=== PATIENT | male | born 1975 | race Caucasian/White ===

== ENCOUNTER 2022-04-13 06:28 | Emergency (ER) | payer BC, SELFPAY ==
--- NOTE | ~2022-04-13 | CT_ITS ---
EXAMINATION: CT abdomen pelvis wo con DATE: 04/13/2022 08:22 INDICATION: Right flank pain. TECHNIQUE: Computed tomography (CT) of the abdomen and pelvis was performed without intravenous contr ast. Automated exposure control and iterative reconstruction technique were employed. The dose-length product was 1578.85 mGy-cm. COMPARISON: None. FINDINGS: The visualized portions of the lung bases demonstrate mild atelectasis. No pleural effusion . The heart size is normal. No pericardial effusion. The liver, gallbladder, spleen, pancreas, and ad renal glands are normal. There are 2 stones in right kidney with the larger measuring 4 mm. There is mild right hydronephrosis. There is a 5 mm stone in proximal right ureter. There is a 5 mm stone in d istal right ureter. There are 3 stones in left kidney measuring up to 5 mm. There are bilateral ingui nal hernias containing fat. There is diverticulosis of the colon without evidence of diverticulitis. There are no dilated loops of bowel. The appendix is normal. There are no pathologically enlarged lym ph nodes. There is no free intraperitoneal fluid. There is mild thoracolumbar spondylosis. IMPRESSION: 1. 5 mm stone in proximal right ureter and 5 mm stone in distal right ureter with mild right hydronep hrosis. 2. Bilateral nonobstructing kidney stones. Reviewed, dictated and finalized at location B. IMPRESSION: 1. 5 mm stone in proximal right ureter and 5 mm stone in distal right ureter wi th mild right hydronephrosis. 2. Bilateral nonobstructing kidney stones.
[2022-04-13 06:30] VITALS: BP 146/95; PULSE 88; RESP 20; TEMP 36.6; O2SAT 100
[2022-04-13 06:52] VITALS: BP 165/112; PULSE 82; RESP 18; O2SAT 100
[2022-04-13 07:14] LABS: Basophils Absolute Auto 0.1 K/mm3 (0.0-0.1); Basophils Percent Auto 0.6 % (0.2-1.2); Eosinophils Absolute Auto 0.1 K/mm3 (0-0.3); Hematocrit 48.7 % (42.0-52.0); Hemoglobin 16.2 g/dL (14.0-18.0); Immature Granulocyte Absolute 0.08 K/mm3 (0.00-0.031); Immature Granulocyte Percent A 0.6 % (0-0.5); Lymphocytes Absolute Auto 3.52 K/mm3 (0.9-3.2); Lymphocytes Percent Auto 27.3 % (18.3-44.2); Mean Corpuscular HGB Conc 33.3 g/dl (32-36); Mean Corpuscular Hemoglobin 29.6 pg (26-34); Mean Platelet Volume 11.3 fl (7.4-10.4); Monocytes Absolute Auto 1.1 K/mm3 (0.1-0.6); Monocytes Percent Auto 8.7 % (2.6-8.5); Neutrophils Percent Auto 61.8 % (45.5-73.1); Platelet Count Result 268 k/mm3 (150-375); Red Blood Count 5.47 M/mm3 (4.6-6.20); Red Cell Distribution Width 12.8 % (11.5-14.5); White Blood Count 12.9 K/mm3 (4.5-10.0)
[2022-04-13 07:18] LABS: Alanine Aminotransferase 42 U/L (6-50); Albumin Level 4.5 g/dL (3.5-5.1); Alkaline Phosphatase 103 U/L (38-126); Anion Gap 7 mmol/L (8-16); Aspartate Amino Transferase 32 U/L (17-59); Bilirubin,Total 0.6 mg/dL (0.2-1.3); Blood Urea Nitrogen 14 mg/dL (9-20); Calcium 9.2 mg/dL (8.4-10.2); Carbon Dioxide 28 mmol/L (22-30); Chloride 101 mmol/L (98-107); Estimated CRCL calculation 114 ml/min; Estimated Glomerular Filt Rate > 60; Glucose 143 mg/dL (65-110); Potassium 4.5 mmol/L (3.4-5.0); Sodium 136 mmol/L (137-145)
--- NOTE | 2022-04-13 08:06 | ED.GENADULT ---
HPI - General Adult General Chief complaint: Abdominal Pain Stated complaint: rt side pain Time Seen by Provider: 04/13/22 07:06 History of Present Illness HPI narrative: 46-year-old male with a history of hypertension, dyslipidemia, prior kidney stones and Simmons's palsy presents with a right-sided flank pain which is constant but worsens with waves and at this intensity. Pain is nonradiating and present since last night. He has not taken any meds. He tried to go to work but was unable to continue. Related Data Allergies Allergy/AdvReac Type Severity Reaction Status Date / Time No Known Allergies Allergy Unknown Other Verified 09/15/17 08:53 Review of Systems Review of Systems: CONSTITUTIONAL: Denies fever, chills, or sweats. EYES: Denies visual changes, redness, or discharge. ENT: Denies rhinorrhea, congestion, sore throat, or otalgia. CARDIOVASCULAR: Denies chest pain, palpitations, or edema. RESPIRATORY: Denies cough or dyspnea. GASTROINTESTINAL: Denies abdominal pain, nausea, vomiting, or diarrhea. GENITOURINARY: Denies dysuria or hematuria. SKIN: Denies rash or itching. MUSCULOSKELETAL: Denies back pain, joint pain, or myalgia. NEUROLOGIC: Denies headache, numbness, or weakness. PSYCHIATRIC: Denies anxiety or depression. Exam Narrative: GENERAL: Well-appearing, well-nourished, and in no acute distress. HEAD: Normocephalic, atraumatic. EYES: PERRLA and EOMI. ENT: Nares clear, no rhinorrhea or epistaxis. Mucous membranes moist. NECK: Supple. CHEST: Clear to auscultation. No respiratory distress. HEART: Regular rate and rhythm. No murmur heard. Normal peripheral pulses. ABDOMEN: Soft, nontender, nondistended, normal active bowel sounds. EXTREMITIES: Normal range of motion. No edema. SKIN: Warm, dry, no rash. NEURO: No focal deficits. Alert and oriented x3. PSYCH: Normal mood and affect. Course Vital Signs Vital signs: Vital Signs Temperature 98 F 04/13/22 06:30 Pulse Rate 88 04/13/22 06:30 Respiratory Rate 20 04/13/22 06:30 Blood Pressure 146/95 H 04/13/22 06:30 Pulse Oximetry 100 04/13/22 06:30 Oxygen Delivery Room Air 04/13/22 06:30 Temperature 98 F 04/13/22 06:30 Pulse Rate 82 04/13/22 06:52 Respiratory Rate 18 04/13/22 06:52 Blood Pressure 165/112 H 04/13/22 06:52 Pulse Oximetry 100 04/13/22 06:52 Oxygen Delivery Room Air 04/13/22 06:30 Medical Decision Making MDM Narrative Medical decision making narrative: IMPRESSION: 1. 5 mm stone in proximal right ureter and 5 mm stone in distal right ureter with mild right hydronephrosis. 2. Bilateral nonobstructing kidney stones. CT as noted above. Mild leukocytosis noted. Patient is afebrile and his pain is well controlled. He is a good candidate for outpatient follow-up with urology. Vital Signs Vital Signs: Vital Signs Temperature 98 F 04/13/22 06:30 Pulse Rate 88 04/13/22 06:30 Respiratory Rate 20 04/13/22 06:30 Blood Pressure 146/95 H 04/13/22 06:30 Pulse Oximetry 100 04/13/22 06:30 Oxygen Delivery Room Air 04/13/22 06:30 Temperature 98 F 04/13/22 06:30 Pulse Rate 82 04/13/22 06:52 Respiratory Rate 18 04/13/22 06:52 Blood Pressure 165/112 H 04/13/22 06:52 Pulse Oximetry 100 04/13/22 06:52 Oxygen Delivery Room Air 04/13/22 06:30 Lab Data Result diagrams: 04/13/22 06:57 04/13/22 06:57 Labs: Lab Results 04/13/22 04/13/22 04/13/22 Range/Units 06:57 06:57 09:04 WBC 12.9 H (4.5-10.0) K/mm3 RBC 5.47 (4.6-6.20) M/mm3 Hgb 16.2 (14.0-18.0) g/dL Hct 48.7 (42.0-52.0) % MCV 89.0 (80-100) fl MCH 29.6 (26-34) pg MCHC 33.3 (32-36) g/dl RDW 12.8 (11.5-14.5) % Plt Count 268 (150-375) k/mm3 MPV 11.3 H (7.4-10.4) fl Immature Gran % (Auto) 0.6 H (0-0.5) % Neut % (Auto) 61.8 (45.5-73.1) % Lymph % (Auto) 27.3 (18.3-44.2) % [place] % (Auto) 8.7 H (2.6-8.5) % Eos % (Auto) 1
[2022-04-13] MEDS: LACTATED RINGERS 1,000 ML 999 ML IV CONT (08:27)
[2022-04-13] MEDS: MORPHINE SULFATE (*CRX) 4 MG/ML INJ IV PUSH (08:27)
[2022-04-13 09:00] VITALS: BP 170/97; PULSE 90; RESP 16; O2SAT 98
[2022-04-13 09:21] LABS: Appearance Urine Clear (Clear); Bilirubin Urine Negative (Negative); Blood Urine 3+ (Negative); Color Urine Yellow (Yellow); Glucose Urine UA Negative (Negative); Ketones Urine Negative (Negative); Leukocyte Esterase Ur Negative LEU/UL (Negative); Nitrate Urine Negative (Negative); Protein Urine Negative (Negative); Urobilinogen Urine 0.2 mg/dL (<2.0); pH Urine 5.5 (5.0-9.0)
[2022-04-13 09:26] LABS: Mucus Urine Rare /lpf; RBC Urine 21-50 /hpf (0-2); Squamous Epithelial Cell Urine Rare /hpf (Few)
[2022-04-13 09:31] LABS: Add Urine Microscopic? YES
[2022-04-13 10:00] VITALS: BP 140/80; PULSE 90; RESP 16; O2SAT 97
[2022-04-13] MEDS: HYDROcodone/acetaminophen (*CRX) 5-325 MG TABLET 1 TAB PO (11:14)
[2022-04-13 11:15] VITALS: BP 135/77; PULSE 90; RESP 16; O2SAT 97
== END 2022-04-13 11:15 | disposition home or self-care (01) ==
PROVIDERS: Emergency Medicine; Emergency Provider Emergency Medicine; PCP Internal Medicine
DX: N13.2 Hydronephrosis with renal and ureteral calculous obstruction (principal)
CPT/HCPCS: 36415; 74176; 80053; 81001; 85025; 96361; 96374; 99284; A9270; J2270; J7120